=== PATIENT | male | born 1955 | race Caucasian/White ===

== ENCOUNTER 2017-05-05 17:10 | Emergency (ER) | payer SELFPAY ==
[~2017-05-05] VITALS: Ht 170.2 cm; Wt 75.0 kg
[2017-05-05 17:13] VITALS: BP 151/76
== END 2017-05-05 19:31 | disposition home or self-care (01) ==
LOC: ED 19:20
DX: M25.551 Pain in right hip (principal)
CPT/HCPCS: 99284